=== PATIENT | male | born 1960 | race Caucasian/White ===

== ENCOUNTER 2021-11-22 23:31 | Emergency (ER) | payer SELFPAY ==
--- NOTE | 2021-11-22 23:47 | NUR ---
ATTEMPTED TO TRIAGE THE PATIENT. PATIENT CONTINUOUSLY SCREAMED AT ME AND REFUSED ANSWERING ANY QUESTIONS AND LEFT
--- NOTE | 2021-11-22 23:48 | NUR ---
LEFT WITHOUT BEING TRIAGED
== END 2021-11-23 00:06 | disposition left against medical advice (07) ==
LOC: ER 23:54
DX: Z53.21 Procedure and treatment not carried out due to patient leaving prior to being seen by health care provider (principal)